=== PATIENT | male | born 1965 | race Two or more races ===

== ENCOUNTER → 2019-02-26 | Outpatient (CLI) | payer OTHER ==
--- NOTE | 2019-02-26 15:00 | CARD ---
MR#: [id number] Account#: Date of Study: 02/26/2019 Ordering Physician: Piedad: Paola Pepper RDCS APPROVED REPORT EXAM: Two-dimensional and M-mode echocardiogram with Doppler and color Doppler. Other Information Quality : Good INDICATION CVA/TIA Dizziness and Vertigo Murmur 2D DIMENSIONS RVDd2.9 (2.9-3.5cm)Left Atrium(2D)3.8 (1.6-4.0cm) IVSd1.2 (0.7-1.1cm)Aortic Root(2D)2.4 (2.0-3.7cm) LVDd4.6 (3.9-5.9cm)LVOT Diameter2.0 (1.8-2.4cm) PWd1.0 (0.7-1.1cm)LVDs2.5 (2.5-4.0cm) FS (%) 30.0 %SV76.8 ml LVEF(%)60.0 (>50%) Aortic Valve AoV Peak Bryson.218.5cm/sAoV VTI42.6cm AO Peak GR.19.1mmHgLVOT Peak Bryson.184.8cm/s LVOT VTI 34.24cmAO Mean GR.9mmHg REMINGTON (VMAX)2.40es3GZV (VTI)2.53cm2 Mitral Valve MV E Sptyjkcb107.2cm/sMV DECEL JNXH041at MV A Lspixqki21.0cm/sMV MXB35sk E/A Ratio1.4MVA (PHT)3.52cm2 TDI E/Lateral E'9.2E/Medial E'14.2 Tricuspid Valve TR P. Ngrlgpzi647zt/sRAP [id number] TR Peak Gr.93mgHmCVIZ24rwRi Pulmonary Vein S1 Lhxiagxl52.0cm/sD2 Mflkgzyj33.5cm/s LEFT VENTRICLE The left ventricle is normal size. There is normal left ventricular wall thickness. The left ventricu lar systolic function is normal and the ejection fraction is within normal range. The Ejection Fracti on is 55-60%. There is normal LV segmental wall motion. The left ventricular diastolic function and f illing is normal for age. RIGHT VENTRICLE The right ventricle is normal size. The right ventricular systolic function is normal. ATRIA The left atrium size is normal. The right atrium size is normal. The interatrial septum is intact wit h no evidence for an atrial septal defect or patent foramen ovale as noted on 2-D or Doppler imaging. AORTIC VALVE The aortic valve is normal in structure and function. Doppler and Color Flow revealed trace aortic re gurgitation. There is no significant aortic valvular stenosis. MITRAL VALVE The mitral valve is normal in structure and function. There is no evidence of mitral valve prolapse. There is no mitral valve stenosis. Doppler and Color Flow revealed no mitral valve regurgitation note d. TRICUSPID VALVE The tricuspid valve is normal in structure and function. Doppler and Color Flow revealed trace tricus pid regurgitation. The PA pressure was estimated at 18 mmHg. There is no tricuspid valve stenosis. PULMONIC VALVE The pulmonary valve is normal in structure and function. Doppler and Color Flow revealed trace pulmon ic valvular regurgitation. There is no pulmonic valvular stenosis. GREAT VESSELS The aortic root is normal in size. The ascending aorta is normal in size. The IVC is normal in size a nd collapses >50% with inspiration. PERICARDIAL EFFUSION There is no evidence of significant pericardial effusion. Critical Notification Critical Value: No <Conclusion> The left ventricle is normal size. The left ventricular systolic function is normal and the ejection fraction is within normal range. The Ejection Fraction is 55-60%. There is no significant aortic valvular stenosis. Doppler and Color Flow revealed trace aortic regurgitation. Doppler and Color Flow revealed no mitral valve regurgitation noted. Doppler and Color Flow revealed trace tricuspid regurgitation. The PA pressure was estimated at 18 mmHg. Signed by : Kemal Gary MD Electronically Approved : 02/26/2019 14:42:27
== END | disposition home or self-care (01) ==
LOC: ECHO 13:32
PROVIDERS: ATTEND Family Medicine
DX: R42 Dizziness and giddiness (principal); R01.1 Cardiac murmur, unspecified; G45.9 Transient cerebral ischemic attack, unspecified
CPT/HCPCS: 93306